=== PATIENT | male | born 1950 | race Caucasian/White ===

== ENCOUNTER 2025-01-20 19:03 | Inpatient (IN) | payer MEDICARE, OTHER ==
[2025-01-20 19:19] LABS: A-aADO2 267; ABG HEMOGLOBIN 13.3; ABG POTASSIUM 4.5 (3.5-5.1); ARTERIAL BLD GAS O2 SATURATION 99.8 % (95-100); ARTERIAL BLOOD GAS BASE EXCESS 3.9 (-2.0-2.0); ARTERIAL BLOOD GAS FIO2 100 %; ARTERIAL BLOOD GAS PO2 356 mmHg (75-100); ARTERIAL BLOOD GAS pH 7.27 (7.35-7.45); CARBOXYHEMOGLOBIN 1.2 % THgb (0.0-6.9); HCO3- 33.1 (22-28); HGB O2 SAT 97.8 g/dF (94-100); Lactic Acid 0.5 (0.4-2.0); Methhemoglobin 0.8 % (1.4-1.5); paO2 pAO1 0.57
[2025-01-20 19:20] LABS: ABG SITE RIGHT RADIAL; ALLEN TEST OK? YES; ARTERIAL BLOOD GAS PCO2 72 mmHg (35-45); BIPAP(E) 8; BIPAP(I) 16
[2025-01-20] MEDS ORDERED: DUONEB 0.5-3 MG/3 ml Neb IH ONE (19:31)
[2025-01-20] MEDS: DUONEB 0.5-3 MG/3 ml Neb IH ONE (19:32)
[2025-01-20 19:51] LABS: Absolute Neutrophil Ct (ANC) 8.26 x10^3/uL (1.78-5.38); BASOPHIL % 0.3 % (0.2-1.2); Basophil (Absolute #) 0.03 x10^3/uL (0.01-0.08); Eosinophil % 0.1 % (0.8-7.0); Eosinophil (Absolute #) 0.01 x10^3/uL (0.04-0.54); Hematocrit 38.2 % (40.1-51.0); Hemoglobin 12.4 g/dL (13.7-17.5); IMMATURE GRAN # 0.03 x10^3u/L (0.001-0.031); IMMATURE GRAN % 0.3 % (0.001-0.429); Lymphocyte (Absolute #) 1.46 x10^3/uL (1.32-3.57); Lymphocytes % 13.9 % (21.8-53.1); Mean Cell Volume 98.7 fL (79.0-92.2); Mean Corpuscular Hgb Concent. 32.5 g/dL (32.3-36.5); Mean Platelet Volume 9.8 fL (9.4-12.4); Monocyte (Absolute #) 0.72 x10^3/uL (0.30-0.82); Monocytes % 6.9 % (5.3-12.2); Neutrophil % 78.5 % (34.0-67.9); Platelet Count 201 x10^3/uL (163-337); Red Blood Count 3.87 x10^6/uL (4.63-6.08); Red Cell Distribution Width 13.2 % (11.6-14.4); White Blood Count 10.5 x10^3/uL (4.23-9.07)
[2025-01-20] MEDS: ROCEPHIN 2 GM/100 ML NACL 2 GM/100 ML IVPB IV ONE (20:04)
[2025-01-20] MEDS ORDERED: ROCEPHIN 2 GM/100 ML NACL 2 GM/100 ML IVPB IV ONE (20:06)
[2025-01-20 20:14] LABS: ANION GAP 11.6 MEQ/L (5-15); BILIRUBIN,TOTAL 0.3 mg/dL (0.2-1.3); Calcium 8.6 mg/dL (8.4-10.2); Creatinine 1 0.6 mg/dL (0.66-1.25); EST GLOMERULAR FILTRATION RATE 100.7 ML/MIN; MAGNESIUM 1.9 mg/dL (1.6-2.3); Potassium 4.5 mmol/L (3.5-5.1); Total Protein 6.3 g/dL (6.3-8.2)
[2025-01-20 20:28] LABS: INFLUENZA B NEGATIVE (NEGATIVE); RESPIRATORY SYNCTIAL VIRUS NEGATIVE (NEGATIVE); SARS-CoV-2 Xpert Express NEGATIVE (NEGATIVE)
[2025-01-20 20:32] LABS: TROPONIN < 0.012 ng/mL (0.000-0.033)
[2025-01-20 20:34] LABS: INFLUENZA A POSITIVE (NEGATIVE)
[2025-01-20] MEDS ORDERED: Zithromax 500 MG/ 250 ML NaCl Premix 500 MG/250 ML IVPB IV ONE (20:45)
[2025-01-20] MEDS: Zithromax 500 MG/ 250 ML NaCl Premix 500 MG/250 ML IVPB IV STA (20:46)
--- NOTE | 2025-01-20 21:17 | ERPHSYRPT ---
- History of Present Illness Source: patient, EMS Exam Limitations: clinical condition Patient Subjective Stated Complaint: C/O SOB. Patient utilizes 02 @ 2L per N/C continuously at home. EMS reports that patient was 82-88% on the 2L. Triage Nursing Assessment: Patient arrived by ambulance. He is alert but drowsy. He is SOB. Lungs are diminished. RT at bedside upon patient arrival to place patient on our BIPAP. No cough noted during assessment. Skin is hot to touch. Hx Tetanus, Diphtheria Vaccination/Date Given: Yes Immunizations Up to Date: Yes - History of Present Illness Time Seen by Provider: 01/20/25 19:14 Physician History: 74-year-old female with history of COPD with chronic respiratory failure on 2 L oxygen, coronary artery disease, hypertension, hyperlipidemia presented in the ER via EMS with flulike symptoms for the last 2 days with progressive worsening cough and difficulty breathing along with subjective feeling of fever and chills . Patient reports coughing up clear to yellow sputum small in amount. Patient was hypoxic on EMS arrival at the scene with saturation in mid to lower 80s on 2 L oxygen, given 2 neb treatments along with Solu-Medrol and placed on CPAP and is brought in the ER. Patient has diminished breath sounds and not moving much air. Given another neb treatment and placed on BiPAP. EKG showed sinus rhythm with no ST elevations. Chest x-ray is negative for any acute cardiopulmonary findings reviewed by me, official report is pending. I did show some COPD, chronic findings. Workup showed white count of 10, chemistries fairly unremarkable, ABGs with pH of 7.27 with some hypercarbia. Negative initial troponins. Patient has positive influenza A and started on Tamiflu. He is also given a dose of Rocephin and Zithromax as I believe patient has a combination of influenza with acute exacerbation of COPD. On reevaluation patient is feeling better with improved work of breathing on BiPAP. Discussed with Dr. Palomino, reviewed history, workup and agreed with admission. Complexity of problems addressed high acuity Complexity of data reviewed analyzed/interpreted: Extensive Risk of complications/morbidity/mortality associated with patient management: High risk ([facility]) Allergies/Adverse Reactions: No Known Drug Allergies Allergy (Verified 01/20/25 19:05) Home Medications: Aspirin 81 gm Chew [Baby Aspirin 81 mg Chew] 81 mg PO DAILY 01/20/25 [History] Budesonide/Formoterol Fumarate [Budesonide-Formoterol 160-4.5] 2 puffs PO BID 01/20/25 [History] Cyanocobalamin (Vitamin B-12) [Vitamin B12] 1,000 mcg PO DAILY 01/20/25 [History] Duloxetine HCl [Cymbalta] 20 mg PO DAILY 01/20/25 [History] Ipratropium/Albuterol Sulfate [Combivent Respimat Inhal [place]] 1 puff PO QID 01/20/25 [History] Metoprolol Succinate 25 mg Xl* [Toprol-Xl 25MG Tablets] 25 mg PO DAILY 01/20/25 [History] Multivitamin 1 tab PO DAILY 01/20/25 [History] Prednisone 10 mg [Deltasone 10 mg] 10 mg PO DAILY 01/20/25 [History] Sacubitril/Valsartan [Entresto 24 mg-26 mg Tablet] 1 tab PO DAILY 01/20/25 [History] Simvastatin 10 mg [Zocor 10MG] 10 mg PO HS 01/20/25 [History] Tamsulosin HCl 0.4 mg [Flomax 0.4 MG] 0.4 mg PO DAILY 01/20/25 [History] Travel Risk - International Travel Have you traveled outside of the country in past 3 weeks: No - Emerging Infectious Disease Are you exhibiting symptoms associated with any current EIDs: Yes Symptoms: Cough: New Onset, Fever, Shortness of Breath - Review of Systems Constitutional: Fever, Fatigue, Weakness Eyes: No Symptoms Ears, Nose, & Throat: Nose Congestion Respiratory: Cough, Dyspnea, Dyspnea on Exertion ([place]), Wheezing Cardiac: No Symptoms Abdominal/Gastrointestinal: No Symptoms Genitourinary Symptoms: No Symptoms Musculoskeletal: Myalgias Neurological: Headache Psychological: No Symptoms Endocrine: No Symptoms Hematologic/Lymphatic: No Symptoms - Past Medical History Pertinent Past Medical History: Yes Cardiac History: High Cholesterol, Hypertension Respiratory History: COPD Psycho-Social History: Anxiety, Depression Male Reproductive Disorders: Prostate Problems Other Medical History: cardiomyopathy, 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 Attempted to get medical history from patient; may be incomplete due to patient's current SOB and drowsiness - Past Surgical History Past Surgical History: Yes Cardiac: Pacemaker - Social History Smoking Status: Current every day smoker How long have you smoked: 50+ years - Social Determinants of Health Will the patient participate in the screening: Declined to provide - Physical Exam General Appearance: moderate distress, alert Eye Exam: PERRL/EOMI, eyes nml inspection Ears, Nose, Throat Exam: hearing grossly normal, nasal congestion Neck Exam: normal inspection, non-tender, supple, full range of motion Respiratory Exam: respiratory distress, diminished breath sounds, accessory muscle use, rhonchi, wheezing Cardiovascular/Chest Exam: normal heart sounds, regular rate/rhythm, bradycardia Abdominal/Gastrointestinal Exam: soft, normal bowel sounds Extremity Exam: non-tender, normal range of motion Neurologic Exam: alert, oriented x 3, cooperative Skin Exam: normal color SpO2 Interpretation: O2 applied SpO2: 98 O2 Delivery: BiPap - Nursing Vital Signs Nursing Vital Signs: Initial Vital Signs Temperature 99.7 F 01/20/25 19:04 Pulse Rate 108 H 01/20/25 19:04 Respiratory Rate 22 01/20/25 19:04 Blood Pressure 151/85 01/20/25 19:04 O2 Sat by Pulse Oximetry 99 01/20/25 19:04 Pain Scale Pain Intensity 0 Ordered Tests: Active Orders 24 hr Category Date Time Status Admit as Inpatient ROUTINE Care 01/21/25 04:47 Active Call Admit Doctor for Orders ON ADMISSION Care 01/21/25 04:47 Active Animal Treatment Investigator STAT Care 01/20/25 19:15 Completed Code Status Order ROUTINE Care 01/21/25 04:47 Active EKG-ER Only STAT Care 01/20/25 19:14 Completed IV Insertion STAT Care 01/20/25 19:14 Completed Telemetry q6h Care 01/21/25 04:47 Active CHEST 1 VIEW (PORTABLE) Stat Exams 01/20/25 19:15 Completed ABG [ARTERIAL BLOOD GASES] Stat Lab 01/20/25 21:55 Completed ARTERIAL BLOOD GASES Stat Lab 01/20/25 19:14 Completed BLOOD CULTURE Stat Lab 01/20/25 19:48 Received CBC W DIFF Stat Lab 01/20/25 19:48 Completed CMP Stat Lab 01/20/25 19:48 Completed Lactic Acid Stat Lab 01/20/25 19:14 Completed MAGNESIUM Stat Lab 01/20/25 19:48 Completed NT PRO BNPII Stat Lab 01/20/25 19:48 Completed TROPONIN Q4H Lab 01/20/25 19:48 Completed Pulse Oximetry CONTINUOUS RT 01/21/25 04:47 Active Respiratory Therapy Consult ONCE RT 01/21/25 04:47 Completed Medication Summary Generic Name Dose Route Start Last Admin Trade Name Phyllis PRN Reason Stop Dose Admin Acetaminophen 325 mg 01/20/25 23:23 Acetaminophen 325 Mg Tablet PO 02/19/25 23:22 Q4H PRN PRN PAIN, FEVER, HEADACHE Albuterol/Ipratropium 3 ml 01/21/25 03:00 01/21/25 11:41 Ipratropium/Albuterol Sulfate 3 Ml Ampul.Neb IH 02/20/25 02:59 3 ml Q4HRT ZAC Administration Aspirin 81 mg 01/21/25 10:00 01/21/25 10:56 Aspirin 81 Mg Tablet.Ec PO 02/20/25 09:59 81 mg DAILY ZAC Administration Methylprednisolone Sodium 0 mg 01/21/25 10:00 01/21/25 10:56 Succinate 40 mg/ Sterile Water IV 02/20/25 09:59 40 mg 1 ml Q12HT ZAC Administration Cyanocobalamin 1,000 mcg 01/21/25 10:00 01/21/25 10:56 Cyanocobalamin 500 Mcg Tablet PO 02/20/25 09:59 1,000 mcg DAILY ZAC Administration Enoxaparin Sodium 40 mg 01/21/25 10:00 01/21/25 10:57 Enoxaparin Sodium 40 Mg/0.4 Ml Syringe SQ 02/20/25 09:59 40 mg DAILY ZAC Administration Ceftriaxone Sodium 1 gm in 100 mls @ 200 mls/hr 01/21/25 22:00 Rocephin 1 Gm / 100 Ml Nacl IV 02/20/25 21:59 HS ZAC Azithromycin 500 mg in 250 mls @ 250 mls/hr 01/21/25 22:00 Zithromax 500 Mg/ 250 Ml Nacl Premix IV 02/20/25 21:59 HS ZAC Insulin Human Lispro 0 unit 01/20/25 23:23 Insulin Lispro 1 Unit SQ 02/19/25 23:22 UD PRN HYPERGLYCEMIA Metoprolol Succinate 25 mg 01/21/25 10:00 01/21/25 10:58 Metoprolol Succinate 25 Mg Xl Tab PO 02/20/25 09:59 25 mg DAILY ZAC Administration Miscellaneous Information 1 each 01/21/25 10:00 Medication Intervention 1 Each Each 02/20/25 09:59 .RN TO CHECK ZAC Multivitamins Therapeutic 1 tab 01/21/25 10:00 01/21/25 10:56 Multivitamins,Therapeutic 1 Tab Tab PO 02/20/25 09:59 1 tab DAILY ZAC Administration Non-Formulary Medication 2 puffs 01/21/25 10:00 Budesonide/Formoterol Fumarate [Budesonide-Formoterol 160-4.5] PO 02/20/25 09:59 BID ZAC Ondansetron HCl 4 mg 01/20/25 23:23 Ondansetron Hcl 4 Mg/2 Ml Vial IV 02/19/25 23:22 Q6H PRN PRN NAUSEA/VOMITING Oseltamivir Phosphate 75 mg 01/21/25 10:00 01/21/25 10:56 Oseltamivir 75 Mg Cap PO 01/26/25 09:59 75 mg BID ZAC Administration Pantoprazole Sodium 40 mg 01/21/25 10:00 01/21/25 10:56 Protonix (Pantoprazole) 40 Mg Tablet PO 02/20/25 09:59 40 mg DAILY ZAC Administration Sacubitril/Valsartan 0.5 tablet 01/21/25 10:00 01/21/25 10:58 Sacubitril/Valsartan 1 Tablet Tablet PO 02/20/25 09:59 0.5 tablet DAILY ZAC Administration Simvastatin 10 mg 01/21/25 22:00 Simvastatin 10 Mg Tablet PO 02/20/25 21:59 HS ZAC Tamsulosin HCl 0.4 mg 01/21/25 10:00 01/21/25 10:56 Tamsulosin Hcl 0.4 Mg Cap PO 02/20/25 09:59 0.4 mg DAILY ZAC Administration Discontinued Medications Generic Name Dose Route Start Last Admin Trade Name Freq PRN Reason Stop Dose Admin Acetaminophen 1,000 mg 01/20/25 21:31 01/20/25 21:37 Acetaminophen 500 Mg Tablet PO 01/20/25 21:32 1,000 mg STAT ONE Administration Acetaminophen Confirm 01/20/25 21:36 Acetaminophen 500 Mg Tablet Administered 01/20/25 21:37 Dose 1,000 mg .ROUTE .STK-MED ONE Albuterol/Ipratropium 3 ml 01/20/25 19:14 01/20/25 19:32 Ipratropium/Albuterol Sulfate 3 Ml Ampul.Neb IH 01/20/25 19:15 3 ml STAT ONE Administration Albuterol/Ipratropium Confirm 01/20/25 19:31 Ipratropium/Albuterol Sulfate 3 Ml Ampul.Neb Administered 01/20/25 19:32 Dose 3 ml IH .STK-MED ONE Aspirin 81 mg 01/21/25 10:00 Aspirin 81 Mg Tab.Chew PO 02/20/25 09:59 DAILY ZAC Azithromycin 500 mg in 250 mls @ 250 mls/hr 01/20/25 20:00 01/20/25 21:49 Zithromax 500 Mg/ 250 Ml Nacl Premix IV 01/20/25 20:59 Infused STAT STA Infusion Ceftriaxone Sodium 2 gm in 100 mls @ 200 mls/hr 01/20/25 20:00 01/20/25 20:45 Rocephin 2 Gm/100 Ml Nacl IV 01/20/25 20:29 Infused STAT ONE Infusion Ceftriaxone Sodium Confirm 01/20/25 20:06 Rocephin 2 Gm/100 Ml Nacl Administered 01/20/25 20:07 Dose 2 gm in 100 mls @ ud IV .STK-MED ONE Azithromycin Confirm 01/20/25 20:45 Zithromax 500 Mg/ 250 Ml Nacl Premix Administered 01/20/25 20:46 Dose 500 mg in 250 mls @ ud IV .STK-MED ONE Sodium Chloride 500 mls @ 500 mls/hr 01/20/25 22:06 01/20/25 22:54 Sodium Chloride 0.9% 500 Ml IV 01/20/25 23:05 Infused .Q1H ONE Infusion Sodium Chloride Confirm 01/20/25 22:04 Sodium Chloride 0.9% 500 Ml Administered 01/20/25 22:05 Dose 500 mls @ ud IV .STK-MED ONE Oseltamivir Phosphate 75 mg 01/20/25 20:36 01/20/25 21:37 Oseltamivir 75 Mg Cap PO 01/20/25 20:37 75 mg STAT ONE Administration Oseltamivir Phosphate Confirm 01/20/25 21:36 Oseltamivir 75 Mg Cap Administered 01/20/25 21:37 Dose 75 mg PO .STK-MED ONE Lab/Rad Data: Laboratory Result Diagrams 01/20/25 19:48 01/20/25 19:48 Laboratory Results 01/20/25 01/20/25 01/20/25 Range/Units 21:55 19:48 19:48 WBC (4.23-9.07) x10^3/uL RBC (4.63-6.08) x10^6/uL Hgb (13.7-17.5) g/dL Hct (40.1-51.0) % MCV (79.0-92.2) fL MCH (25.7-32.2) pg MCHC (32.3-36.5) g/dL RDW (11.6-14.4) % Plt Count (163-337) x10^3/uL MPV (9.4-12.4) fL Gran % (34.0-67.9) % Immature Gran % (Auto) (0.001-0.429) % Nucleat RBC Rel Count (0.00-0.2) % Eos # (Auto) (0.04-0.54) x10^3/uL Immature Gran # (Auto) (0.001-0.031) x10^3u/L Absolute Lymphs (auto) (1.32-3.57) x10^3/uL Absolute Monos (auto) (0.30-0.82) x10^3/uL Absolute Nucleated RBC (0.00-0.012) x10^3u/L Lymphocytes % (21.8-53.1) % Monocytes % (5.3-12.2) % Eosinophils % (0.8-7.0) % Basophils % (0.2-1.2) % Absolute Granulocytes (1.78-5.38) x10^3/uL Basophils # (0.01-0.08) x10^3/uL Puncture Site LEFT RADIAL pCO2 67 H* (35-45) mmHg pO2 187 H* (75-100) mmHg Base Excess 1.4 (-2.0-2.0) O2 Saturation 97.8 (94-100) g/dF ABG pH 7.26 L (7.35-7.45) ABG HCO3 30.1 H* (22-28) ABG O2 Sat (Measured) 98.8 (95-100) % Josh Test YES A-a Gradient 86 a/A Ratio 0.68 Hemoglobin 12.8 Carboxyhemoglobin 0.5 (0.0-6.9) % THgb Methemoglobin 0.6 L (1.4-1.5) % Potassium 4.2 (3.5-5.1) Temperature 37.0 C POC O2 Flow Rate 50 % Inspiratory BiPAP 16 Expiratory BiPAP 8 Sodium (135-145) mmol/L Chloride (98-107) mmol/L Carbon Dioxide (22-30) mmol/L Anion Gap (5-15) MEQ/L BUN (9-20) mg/dL Creatinine (0.66-1.25) mg/dL Estimated GFR ML/MIN Glucose (74-106) mg/dL Lactic Acid (0.4-2.0) Calcium (8.4-10.2) mg/dL Magnesium (1.6-2.3) mg/dL Total Bilirubin (0.2-1.3) mg/dL AST (17-59) U/L ALT (0-50) U/L Alkaline Phosphatase (38-126) U/L Troponin I < 0.012 (0.000-0.033) ng/mL NT-Pro-B Natriuret Pep 72.0 (<300) pg/mL Serum Total Protein (6.3-8.2) g/dL Albumin (3.5-5.0) g/dL Influenza Type A Ag POSITIVE A (NEGATIVE) Influenza Type B Ag NEGATIVE (NEGATIVE) RSV (PCR) NEGATIVE (NEGATIVE) SARS-CoV-2 (PCR) NEGATIVE (NEGATIVE) 01/20/25 01/20/25 01/20/25 Range/Units 19:48 19:48 19:14 WBC 10.5 H (4.23-9.07) x10^3/uL RBC 3.87 L (4.63-6.08) x10^6/uL Hgb 12.4 L (13.7-17.5) g/dL Hct 38.2 L (40.1-51.0) % MCV 98.7 H (79.0-92.2) fL MCH 32.0 (25.7-32.2) pg MCHC 32.5 (32.3-36.5) g/dL RDW 13.2 (11.6-14.4) % Plt Count 201 (163-337) x10^3/uL MPV 9.8 (9.4-12.4) fL Gran % 78.5 H (34.0-67.9) % Immature Gran % (Auto) 0.3 (0.001-0.429) % Nucleat RBC Rel Count 0.0 (0.00-0.2) % Eos # (Auto) 0.01 L (0.04-0.54) x10^3/uL Immature Gran # (Auto) 0.03 (0.001-0.031) x10^3u/L Absolute Lymphs (auto) 1.46 (1.32-3.57) x10^3/uL Absolute Monos (auto) 0.72 (0.30-0.82) x10^3/uL Absolute Nucleated RBC 0.00 (0.00-0.012) x10^3u/L Lymphocytes % 13.9 L (21.8-53.1) % Monocytes % 6.9 (5.3-12.2) % Eosinophils % 0.1 L (0.8-7.0) % Basophils % 0.3 (0.2-1.2) % Absolute Granulocytes 8.26 H (1.78-5.38) x10^3/uL Basophils # 0.03 (0.01-0.08) x10^3/uL Puncture Site RIGHT RADIAL pCO2 72 H* (35-45) mmHg pO2 356 H* (75-100) mmHg Base Excess 3.9 H (-2.0-2.0) O2 Saturation 97.8 (94-100) g/dF ABG pH 7.27 L (7.35-7.45) ABG HCO3 33.1 H* (22-28) ABG O2 Sat (Measured) 99.8 (95-100) % Josh Test YES A-a Gradient 267 a/A Ratio 0.57 Hemoglobin 13.3 Carboxyhemoglobin 1.2 (0.0-6.9) % THgb Methemoglobin 0.8 L (1.4-1.5) % Potassium 4.5 4.5 (3.5-5.1) Temperature 37.0 C POC O2 Flow Rate 100 % Inspiratory BiPAP 16 Expiratory BiPAP 8 Sodium 135 (135-145) mmol/L Chloride 97 L (98-107) mmol/L Carbon Dioxide 30 (22-30) mmol/L Anion Gap 11.6 (5-15) MEQ/L BUN 15 (9-20) mg/dL Creatinine 0.60 L (0.66-1.25) mg/dL Estimated GFR 100.7 ML/MIN Glucose 127 H (74-106) mg/dL Lactic Acid 0.5 (0.4-2.0) Calcium 8.6 (8.4-10.2) mg/dL Magnesium 1.9 (1.6-2.3) mg/dL Total Bilirubin 0.30 (0.2-1.3) mg/dL AST 30 (17-59) U/L ALT 23 (0-50) U/L Alkaline Phosphatase 56 (38-126) U/L Troponin I (0.000-0.033) ng/mL NT-Pro-B Natriuret Pep (<300) pg/mL Serum Total Protein 6.3 (6.3-8.2) g/dL Albumin 4.0 (3.5-5.0) g/dL Influenza Type A Ag (NEGATIVE) Influenza Type B Ag (NEGATIVE) RSV (PCR) (NEGATIVE) SARS-CoV-2 (PCR) (NEGATIVE) - Progress Progress: improved, re-examined Air Movement: fair Blood Culture(s) Obtained: Yes Antibiotics given: Yes Discussed with Dr.: Other (Dr. Palomino hospitalist) Will see patient in: hospital (full admit) Counseled pt/family regarding: lab results, diagnosis, rad results, smoking cessation - Progress Progress Note: 01/20/25 21:17 74-year-old female with history of COPD with chronic respiratory failure on 2 L oxygen, coronary artery disease, hypertension, hyperlipidemia presented in the ER via EMS with flulike symptoms for the last 2 days with progressive worsening cough and difficulty breathing along with subjective feeling of fever and chills. Patient reports coughing up clear to yellow sputum small in amount. Patient was hypoxic on EMS arrival at the scene with saturation in mid to lower 80s on 2 L oxygen, given 2 neb treatments along with Solu-Medrol and placed on CPAP and is brought in the ER. Patient has diminished breath sounds and not moving much air. Given another neb treatment and placed on BiPAP. EKG showed sinus rhythm with no ST elevations. Chest x-ray is negative for any acute cardiopulmonary findings reviewed by me, official report is pending. I did show some COPD, chronic findings. Workup showed white count of 10, chemistries fairly unremarkable, ABGs with pH of 7.27 with some hypercarbia. Negative initial troponins. Patient has positive influenza A and started on Tamiflu. He is also given a dose of Rocephin and Zithromax as I believe patient has a combination of influenza with acute exacerbation of COPD. On reevaluation patient is feeling better with improved work of breathing on BiPAP. Discussed with Dr. Palomino, reviewed history, workup and agreed with admission. Complexity of problems addressed high acuity Complexity of data reviewed analyzed/interpreted: Extensive Risk of complications/morbidity/mortality associated with patient management: High risk ([facility]) 01/21/25 13:01 I received a phone call from our in-house radiologist Dr. Ruiz who over read and gave the final chest x-ray report on this patient. Dr. Main had said that he did not appreciate any acute cardiopulmonary process on his read. However Dr. Ruiz states that he sees a right middle lobe infiltrate. I reviewed the chart and Dr. Main did place the patient on intravenous Rocephin and intravenous Zithromax. The patient was placed into the hospital here at [facility]. We will contact the floor and informed them of the radiologist read. (SHEELA SOTO) Medical Desision Making - Independent Historian Additional History obtained from: Wound Care Technician/EMT - Discussion of managment Care discussed with:: hospitalist (Dr. Palomino hospitalist) Reviewed:: Test results Agreed on:: Treatment plan, decision to admit Will see patient: in ED - Diagnostic Testing Diagnostic test were ordered, analyzed, and reviewed by me: Yes Radiological Interpretation: Interpreted by me, Reviewed by me - Risk of complications The pt has a mod risk of morbidity or mortality based on: Need for prescription drug management The pt has a high risk of morbidity or mortality based on: Drug therapy requirin g intensive monitoring for toxicity, Decision regarding hospitilization or escalation of hosp level of care - Departure Departure Disposition: In-patient Admission Critical Care Time: Yes Critical Care Time(excluding separately billable procedures): Critical 30-74 mins - Departure Clinical Impression: COPD exacerbation, Influenza A Respiratory failure Qualifiers: Chronicity: acute on chronic Respiratory failure complication: hypoxia and hypercapnia Qualified Code(s): J96.21 - Acute and chronic respiratory failure with hypoxia Condition: Fair
[2025-01-20] MEDS ORDERED: TYLENOL EXTRA STRENGTH 500 MG ONE (21:36)
[2025-01-20] MEDS ORDERED: Tamiflu 75MG Capsule PO ONE (21:36)
[2025-01-20] MEDS: TYLENOL EXTRA STRENGTH 500 MG PO ONE (21:37)
[2025-01-20] MEDS: Tamiflu 75MG Capsule PO ONE (21:37)
[2025-01-20 21:55] LABS: A-aADO2 86; ABG HEMOGLOBIN 12.8; ABG POTASSIUM 4.2 (3.5-5.1); ARTERIAL BLD GAS O2 SATURATION 98.8 % (95-100); ARTERIAL BLOOD GAS BASE EXCESS 1.4 (-2.0-2.0); ARTERIAL BLOOD GAS FIO2 50 %; ARTERIAL BLOOD GAS PO2 187 mmHg (75-100); ARTERIAL BLOOD GAS pH 7.26 (7.35-7.45); CARBOXYHEMOGLOBIN 0.5 % THgb (0.0-6.9); HCO3- 30.1 (22-28); HGB O2 SAT 97.8 g/dF (94-100); Methhemoglobin 0.6 % (1.4-1.5); paO2 pAO1 0.68
[2025-01-20 21:56] LABS: ABG SITE LEFT RADIAL; ALLEN TEST OK? YES; ARTERIAL BLOOD GAS PCO2 67 mmHg (35-45); BIPAP(E) 8; BIPAP(I) 16
[2025-01-20] MEDS ORDERED: Sodium Chloride 0.9% 500 ML 500 ML IV ONE (22:04)
[2025-01-20] MEDS: Sodium Chloride 0.9% 500 ML 500 ML IV ONE (22:08)
--- NOTE | 2025-01-20 22:54 | PCM.HP ---
History of Present Illness - Chief Complaint Chief Complaint: SOB Date: 01/20/25 History of Present Illness: Mr. VASQUEZ is a 74 year old male with a past medical history significant for hypertension, COPD and hyperlipidemia who presents to the hospital with complaints of fever, chills and shortness of breath. He was hypoxic upon arrival, then given supplemental oxygen and duonebs. He tested positive for influenza A and has been recommended for admission. He is resting in bed, awake/alert. No chest pain or palpitations. No nausea, vomiting or diarrhea. No dysuria, hematuria or urgency. - Review of Systems Constitutional: Fever, Chills, Fatigue Eyes: No Vision Changes Ears, Nose, & Throat: No Sinus Drainage Respiratory: Cough, Short Of Breath Cardiac: No Chest Pain, No Palpitations Abdominal/Gastrointestinal: No Abdominal Pain, No Nausea, No Vomiting, No Diarrhea Genitourinary Symptoms: No Dysuria, No Frequency, No Hematuria Musculoskeletal: No Arthralgias Skin: No Cellulitis Psychological: No Suicidal Ideations Endocrine: No Excessive Sweating Medications & Allergies Home Medications: Home Medication List Aspirin 81 gm Chew [Baby Aspirin 81 mg Chew] 81 mg PO DAILY 01/20/25 [History Confirmed 01/20/25] Budesonide/Formoterol Fumarate [Budesonide-Formoterol 160-4.5] 2 puffs PO BID 01/20/25 [History Confirmed 01/20/25] Cyanocobalamin (Vitamin B-12) [Vitamin B12] 1,000 mcg PO DAILY 01/20/25 [History Confirmed 01/20/25] Duloxetine HCl [Cymbalta] 20 mg PO DAILY 01/20/25 [History Confirmed 01/20/25] Ipratropium/Albuterol Sulfate [Combivent Respimat Inhal [place]] 1 puff PO QID 01/20/25 [History Confirmed 01/20/25] Metoprolol Succinate 25 mg Xl* [Toprol-Xl 25MG Tablets] 25 mg PO DAILY 01/20/25 [History Confirmed 01/20/25] Multivitamin 1 tab PO DAILY 01/20/25 [History Confirmed 01/20/25] Prednisone 10 mg [Deltasone 10 mg] 10 mg PO DAILY 01/20/25 [History Confirmed 01/20/25] Sacubitril/Valsartan [Entresto 24 mg-26 mg Tablet] 1 tab PO DAILY 01/20/25 [History Confirmed 01/20/25] Simvastatin 10 mg [Zocor 10MG] 10 mg PO HS 01/20/25 [History Confirmed 01/20/25] Tamsulosin HCl 0.4 mg [Flomax 0.4 MG] 0.4 mg PO DAILY 01/20/25 [History Confirmed 01/20/25] Allergies/Adverse Reactions: Allergies Allergy/AdvReac Type Severity Reaction Status Date / Time No Known Drug Allergies Allergy Verified 01/20/25 19:05 - Past Medical History Past Medical History: Yes Cardiac History: High Cholesterol, Hypertension Respiratory History: COPD Pyscho-Social History: Anxiety, Depression Male Reproductive Disorders: Prostate Problems Comment: cardiomyopathy, 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 Attempted to get medical history from patient; may be incomplete due to patient's current SOB and drowsiness - Past Surgical History Past Surgical History: Yes Cardiac History: Pacemaker - Social History Smoking Status: Current every day smoker How long have you smoked: 50+ years - Social Determinants of Health Will the patient participate in the screening: Declined to provide - Physical Exam Vital Signs: Vital Signs - 24 hr Temp Pulse Resp BP Pulse Ox 01/20/25 22:04 100 H 21 80/53 99 01/20/25 22:00 99 H 18 85/57 99 01/20/25 21:30 104/60 01/20/25 21:19 98 01/20/25 21:18 102 H 26 H 98 01/20/25 21:01 104 H 26 H 96/57 99 01/20/25 20:30 99.9 F 100 H 25 H 105/71 98 01/20/25 20:00 105 H 21 111/56 98 01/20/25 19:33 108 H 21 114/64 97 01/20/25 19:32 110 H 21 99 01/20/25 19:30 112 H 22 89/58 99 01/20/25 19:15 115 H 16 115/70 97 01/20/25 19:04 99.7 F 108 H 22 151/85 99 General Appearance: no apparent distress Neurologic Exam: alert Ears, Nose, Throat Exam: dry mucous membranes Neck Exam: supple Respiratory Exam: No respiratory distress Cardiovascular Exam: regular rate/rhythm Gastrointestinal/Abdomen Exam: soft Extremity Exam: No pedal edema, No swelling Skin Exam: normal color, No rash Results - Labs Lab/Micro Results: Lab Results-Last 24 Hours 01/20/25 01/20/25 01/20/25 Range/Units 19:14 19:48 19:48 WBC 10.5 H (4.23-9.07) x10^3/uL RBC 3.87 L (4.63-6.08) x10^6/uL Hgb 12.4 L (13.7-17.5) g/dL Hct 38.2 L (40.1-51.0) % MCV 98.7 H (79.0-92.2) fL MCH 32.0 (25.7-32.2) pg MCHC 32.5 (32.3-36.5) g/dL RDW 13.2 (11.6-14.4) % Plt Count 201 (163-337) x10^3/uL MPV 9.8 (9.4-12.4) fL Gran % 78.5 H (34.0-67.9) % Immature Gran % (Auto) 0.3 (0.001-0.429) % Nucleat RBC Rel Count 0.0 (0.00-0.2) % Eos # (Auto) 0.01 L (0.04-0.54) x10^3/uL Immature Gran # (Auto) 0.03 (0.001-0.031) x10^3u/L Absolute Lymphs (auto) 1.46 (1.32-3.57) x10^3/uL Absolute Monos (auto) 0.72 (0.30-0.82) x10^3/uL Absolute Nucleated RBC 0.00 (0.00-0.012) x10^3u/L Lymphocytes % 13.9 L (21.8-53.1) % Monocytes % 6.9 (5.3-12.2) % Eosinophils % 0.1 L (0.8-7.0) % Basophils % 0.3 (0.2-1.2) % Absolute Granulocytes 8.26 H (1.78-5.38) x10^3/uL Basophils # 0.03 (0.01-0.08) x10^3/uL Puncture Site RIGHT RADIAL pCO2 72 H* (35-45) mmHg pO2 356 H* (75-100) mmHg Base Excess 3.9 H (-2.0-2.0) O2 Saturation 97.8 (94-100) g/dF ABG pH 7.27 L (7.35-7.45) ABG HCO3 33.1 H* (22-28) ABG O2 Sat (Measured) 99.8 (95-100) % Josh Test YES A-a Gradient 267 a/A Ratio 0.57 Hemoglobin 13.3 Carboxyhemoglobin 1.2 (0.0-6.9) % THgb Methemoglobin 0.8 L (1.4-1.5) % Potassium 4.5 4.5 (3.5-5.1) Temperature 37.0 C POC O2 Flow Rate 100 % Inspiratory BiPAP 16 Expiratory BiPAP 8 Sodium 135 (135-145) mmol/L Chloride 97 L (98-107) mmol/L Carbon Dioxide 30 (22-30) mmol/L Anion Gap 11.6 (5-15) MEQ/L BUN 15 (9-20) mg/dL Creatinine 0.60 L (0.66-1.25) mg/dL Estimated GFR 100.7 ML/MIN Glucose 127 H (74-106) mg/dL Lactic Acid 0.5 (0.4-2.0) Calcium 8.6 (8.4-10.2) mg/dL Magnesium 1.9 (1.6-2.3) mg/dL Total Bilirubin 0.30 (0.2-1.3) mg/dL AST 30 (17-59) U/L ALT 23 (0-50) U/L Alkaline Phosphatase 56 (38-126) U/L Troponin I (0.000-0.033) ng/mL NT-Pro-B Natriuret Pep (<300) pg/mL Serum Total Protein 6.3 (6.3-8.2) g/dL Albumin 4.0 (3.5-5.0) g/dL Influenza Type A Ag (NEGATIVE) Influenza Type B Ag (NEGATIVE) RSV (PCR) (NEGATIVE) SARS-CoV-2 (PCR) (NEGATIVE) 01/20/25 01/20/25 01/20/25 Range/Units 19:48 19:48 21:55 WBC (4.23-9.07) x10^3/uL RBC (4.63-6.08) x10^6/uL Hgb (13.7-17.5) g/dL Hct (40.1-51.0) % MCV (79.0-92.2) fL MCH (25.7-32.2) pg MCHC (32.3-36.5) g/dL RDW (11.6-14.4) % Plt Count (163-337) x10^3/uL MPV (9.4-12.4) fL Gran % (34.0-67.9) % Immature Gran % (Auto) (0.001-0.429) % Nucleat RBC Rel Count (0.00-0.2) % Eos # (Auto) (0.04-0.54) x10^3/uL Immature Gran # (Auto) (0.001-0.031) x10^3u/L Absolute Lymphs (auto) (1.32-3.57) x10^3/uL Absolute Monos (auto) (0.30-0.82) x10^3/uL Absolute Nucleated RBC (0.00-0.012) x10^3u/L Lymphocytes % (21.8-53.1) % Monocytes % (5.3-12.2) % Eosinophils % (0.8-7.0) % Basophils % (0.2-1.2) % Absolute Granulocytes (1.78-5.38) x10^3/uL Basophils # (0.01-0.08) x10^3/uL Puncture Site LEFT RADIAL pCO2 67 H* (35-45) mmHg pO2 187 H* (75-100) mmHg Base Excess 1.4 (-2.0-2.0) O2 Saturation 97.8 (94-100) g/dF ABG pH 7.26 L (7.35-7.45) ABG HCO3 30.1 H* (22-28) ABG O2 Sat (Measured) 98.8 (95-100) % Josh Test YES A-a Gradient 86 a/A Ratio 0.68 Hemoglobin 12.8 Carboxyhemoglobin 0.5 (0.0-6.9) % THgb Methemoglobin 0.6 L (1.4-1.5) % Potassium 4.2 (3.5-5.1) Temperature 37.0 C POC O2 Flow Rate 50 % Inspiratory BiPAP 16 Expiratory BiPAP 8 Sodium (135-145) mmol/L Chloride (98-107) mmol/L Carbon Dioxide (22-30) mmol/L Anion Gap (5-15) MEQ/L BUN (9-20) mg/dL Creatinine (0.66-1.25) mg/dL Estimated GFR ML/MIN Glucose (74-106) mg/dL Lactic Acid (0.4-2.0) Calcium (8.4-10.2) mg/dL Magnesium (1.6-2.3) mg/dL Total Bilirubin (0.2-1.3) mg/dL AST (17-59) U/L ALT (0-50) U/L Alkaline Phosphatase (38-126) U/L Troponin I < 0.012 (0.000-0.033) ng/mL NT-Pro-B Natriuret Pep 72.0 (<300) pg/mL Serum Total Protein (6.3-8.2) g/dL Albumin (3.5-5.0) g/dL Influenza Type A Ag POSITIVE A (NEGATIVE) Influenza Type B Ag NEGATIVE (NEGATIVE) RSV (PCR) NEGATIVE (NEGATIVE) SARS-CoV-2 (PCR) NEGATIVE (NEGATIVE) - Radiology Impressions Radiology Exams & Impressions: Radiology Procedures Category Date Time Status CHEST 1 VIEW (PORTABLE) Stat Exams 01/20/25 19:15 Taken - Other Procedures and Tests Respiratory Therapy 01/20/25 19:14 BiPap/CPAP STAT 01/20/25 19:37 Respiratory Therapy Assessment DAILY Assessment/Plan (1) Acute respiratory failure with hypoxemia Current Visit: Yes Status: Acute Assessment & Plan: Secondary to influenza with underlying COPD 1. Admit to hospital 2. Duonebs, supplemental oxygen 3. Steroids 4. DVT/GI prophylaxis 5. Monitor oxygen sats Code(s): J96.01 - ACUTE RESPIRATORY FAILURE WITH HYPOXIA (2) COPD exacerbation Current Visit: Yes Status: Acute Assessment & Plan: Worsened by influenza 1. Duonebs, steroids 2. Wean oxygen 3. ABG prn Code(s): J44.1 - CHRONIC OBSTRUCTIVE PULMONARY DISEASE W (ACUTE) EXACERBATION (3) Influenza A Current Visit: Yes Status: Acute Assessment & Plan: Influenza with fever/chills 1. Tamiflu 2. Trend WBC 3. Empiric antibiotics Code(s): J10.1 - FLU DUE TO OTH IDENT INFLUENZA VIRUS W OTH RESP MANIFEST (4) Respiratory acidosis Current Visit: Yes Status: Acute Assessment & Plan: ABG with pCO2 67 1. Monitor ABG 2. Defer bicarb Code(s): E87.29 - OTHER ACIDOSIS (5) Essential (primary) hypertension Current Visit: Yes Status: Acute Assessment & Plan: Blood pressure under good control 1. Continue bp meds 2. Low sodium diet 3. Monitor blood pressure readings Code(s): I10 - ESSENTIAL (PRIMARY) HYPERTENSION Telemedicine Encounter - Telemedicine Encounter Telemedicine Encounter: "The entirety of this encounter was performed via Telemedicine" This visit was performed using real-time audio and video connection between my location and thepatients locationwith the assistance of a surrogateat the patients location. Written or verbal consent was obtained from the patient/guardian to perform this visit usingthe [facility] technology. Any patient questions regarding the telemedicine interaction were answered.
[2025-01-20] MEDS ORDERED: Zofran 4 MG/2 ML VIAL IV PRN (23:23)
[2025-01-20] MEDS ORDERED: TYLENOL 325 MG PO PRN (23:23)
[2025-01-20] MEDS ORDERED: HUMALOG SQ PRN (23:23)
[2025-01-20] MEDS: DUONEB 0.5-3 MG/3 ml Neb IH SCH (23:30)
[2025-01-21] MEDS ORDERED: DUONEB 0.5-3 MG/3 ml Neb IH SCH (01:00)
[2025-01-21 03:48] LABS: A-aADO2 55; ABG HEMOGLOBIN 12.2; ABG POTASSIUM 4.4 (3.5-5.1); ABG SITE LEFT RADIAL; ALLEN TEST OK? YES; ARTERIAL BLD GAS O2 SATURATION 99.6 % (95-100); ARTERIAL BLOOD GAS FIO2 40 %; ARTERIAL BLOOD GAS PCO2 56 mmHg (35-45); ARTERIAL BLOOD GAS PO2 160 mmHg (75-100); ARTERIAL BLOOD GAS pH 7.35 (7.35-7.45); CARBOXYHEMOGLOBIN 3.4 % THgb (0.0-6.9); HCO3- 30.9 (22-28); HGB O2 SAT 95.3 g/dF (94-100); Methhemoglobin 0.9 % (1.4-1.5); paO2 pAO1 0.74
[2025-01-21 04:01] LABS: ALBUMIN 3.8 g/dL (3.5-5.0); ANION GAP 9.6 MEQ/L (5-15); BILIRUBIN,TOTAL 0.2 mg/dL (0.2-1.3); Calcium 8.2 mg/dL (8.4-10.2); Creatinine 1 0.5 mg/dL (0.66-1.25); EST GLOMERULAR FILTRATION RATE 106.4 ML/MIN; Potassium 4.5 mmol/L (3.5-5.1)
[2025-01-21 04:41] LABS: Absolute Neutrophil Ct (ANC) 6.45 x10^3/uL (1.78-5.38); BASOPHIL % 0.1 % (0.2-1.2); Basophil (Absolute #) 0.01 x10^3/uL (0.01-0.08); Eosinophil % 0.1 % (0.8-7.0); Eosinophil (Absolute #) 0.01 x10^3/uL (0.04-0.54); Hematocrit 35.5 % (40.1-51.0); Hemoglobin 11.5 g/dL (13.7-17.5); IMMATURE GRAN # 0.02 x10^3u/L (0.001-0.031); IMMATURE GRAN % 0.3 % (0.001-0.429); Lymphocyte (Absolute #) 0.45 x10^3/uL (1.32-3.57); Lymphocytes % 6.4 % (21.8-53.1); Mean Cell Volume 99.2 fL (79.0-92.2); Mean Corpuscular Hemoglobin 32.1 pg (25.7-32.2); Mean Corpuscular Hgb Concent. 32.4 g/dL (32.3-36.5); Mean Platelet Volume 10.3 fL (9.4-12.4); Monocyte (Absolute #) 0.07 x10^3/uL (0.30-0.82); Neutrophil % 92.1 % (34.0-67.9); Platelet Count 212 x10^3/uL (163-337); Red Blood Count 3.58 x10^6/uL (4.63-6.08); Red Cell Distribution Width 13.2 % (11.6-14.4)
[2025-01-21 05:08] LABS: Slide Review 1 YES
--- NOTE | 2025-01-21 05:27 | PCM.NOTE ---
Date and Time: 01/21/25523 Subjective Assessment: Mr. VASQUEZ is a 74 year old male with a past medical history significant for hypertension, COPD and hyperlipidemia who presents to the hospital with complaints of fever, chills and shortness of breath. He was hypoxic upon arrival, then given supplemental oxygen and duonebs. CXR demonstrates COPD and a few calcified granulomas. New right middle lobe infiltrate/atelectasis with tiny effusion. Heart not enlarged again with right pacemaker. Bony thorax intact again with osteopenia and degenerative changes. He tested positive for influenza A and has been recommended for admission. Patient initially on BIPAP and now on 5L oxymask. Endorses continued dyspnea, productive cough with purulent sputum, poor appetite, and generalized weakness. Lung sounds diminished on auscultation. Plan for continued supportive therapy with supplemental oxygen, Tamiflu, steroids, and antibiotics. - Review of Systems Constitutional: Weakness Eyes: No Symptoms Ears, Nose, & Throat: No Symptoms Respiratory: Cough, Short Of Breath Cardiac: No Symptoms Abdominal/Gastrointestinal: Appetite Changes (poor appetite ) Genitourinary Symptoms: No Symptoms Musculoskeletal: No Symptoms Skin: No Symptoms Neurological: No Symptoms Psychological: No Symptoms Endocrine: No Symptoms Hematologic/Lymphatic: No Symptoms Immunological/Allergic: No Symptoms Objective Exam General Appearance: no apparent distress Neurologic Exam: alert, oriented x 3, cooperative Skin Exam: normal color Eye Exam: PERRL Ears, Nose, Throat Exam: normal ENT inspection Neck Exam: normal inspection Respiratory Exam: normal breath sounds, lungs clear Cardiovascular Exam: regular rate/rhythm, normal heart sounds Gastrointestinal/Abdomen Exam: soft, normal bowel sounds Extremity Exam: normal inspection Back Exam: normal inspection Male Genitalia Exam: deferred Rectal Exam: deferred Objective Data Vital Signs: Vital Signs - 24 hr Temp Pulse Resp BP BP Pulse Ox 01/21/25 04:47 91 L 01/21/25 04:00 97.1 F 94 H 18 112/55 96 01/21/25 03:25 94 H 25 H 96 01/20/25 23:30 106 H 22 98 01/20/25 23:29 98.2 F 94 H 19 94/54 97 01/20/25 23:21 98.2 F 94 H 19 94/54 97 01/20/25 22:45 98.5 F 93 H 21 93/65 98 01/20/25 22:30 90 22 90/51 99 01/20/25 22:28 94 H 20 90/51 99 01/20/25 22:04 100 H 21 80/53 99 01/20/25 22:00 99 H 18 85/57 99 01/20/25 21:30 104/60 01/20/25 21:19 98 01/20/25 21:18 102 H 26 H 98 01/20/25 21:01 104 H 26 H 96/57 99 01/20/25 20:30 99.9 F 100 H 25 H 105/71 98 01/20/25 20:00 105 H 21 111/56 98 01/20/25 19:33 108 H 21 114/64 97 01/20/25 19:32 110 H 21 99 01/20/25 19:30 112 H 22 89/58 99 01/20/25 19:15 115 H 16 115/70 97 01/20/25 19:04 99.7 F 108 H 22 151/85 99 Pain Assessment - Last Documented Pain Intensity 3 Intake and Output: Intake & Output 01/18/25 01/19/25 01/20/25 01/21/25 11:59 11:59 11:59 11:59 Weight 60.9 kg Lab Results: Lab Results-Last 24 Hours 01/20/25 01/20/25 01/20/25 Range/Units 19:14 19:48 19:48 WBC 10.5 H (4.23-9.07) x10^3/uL RBC 3.87 L (4.63-6.08) x10^6/uL Hgb 12.4 L (13.7-17.5) g/dL Hct 38.2 L (40.1-51.0) % MCV 98.7 H (79.0-92.2) fL MCH 32.0 (25.7-32.2) pg MCHC 32.5 (32.3-36.5) g/dL RDW 13.2 (11.6-14.4) % Plt Count 201 (163-337) x10^3/uL MPV 9.8 (9.4-12.4) fL Gran % 78.5 H (34.0-67.9) % Immature Gran % (Auto) 0.3 (0.001-0.429) % Nucleat RBC Rel Count 0.0 (0.00-0.2) % Eos # (Auto) 0.01 L (0.04-0.54) x10^3/uL Immature Gran # (Auto) 0.03 (0.001-0.031) x10^3u/L Absolute Lymphs (auto) 1.46 (1.32-3.57) x10^3/uL Absolute Monos (auto) 0.72 (0.30-0.82) x10^3/uL Absolute Nucleated RBC 0.00 (0.00-0.012) x10^3u/L Lymphocytes % 13.9 L (21.8-53.1) % Monocytes % 6.9 (5.3-12.2) % Eosinophils % 0.1 L (0.8-7.0) % Basophils % 0.3 (0.2-1.2) % Absolute Granulocytes 8.26 H (1.78-5.38) x10^3/uL Basophils # 0.03 (0.01-0.08) x10^3/uL Puncture Site RIGHT RADIAL pCO2 72 H* (35-45) mmHg pO2 356 H* (75-100) mmHg Base Excess 3.9 H (-2.0-2.0) O2 Saturation 97.8 (94-100) g/dF ABG pH 7.27 L (7.35-7.45) ABG HCO3 33.1 H* (22-28) ABG O2 Sat (Measured) 99.8 (95-100) % Josh Test YES A-a Gradient 267 a/A Ratio 0.57 Hemoglobin 13.3 Carboxyhemoglobin 1.2 (0.0-6.9) % THgb Methemoglobin 0.8 L (1.4-1.5) % Potassium 4.5 4.5 (3.5-5.1) Temperature 37.0 C POC O2 Flow Rate 100 % Inspiratory BiPAP 16 Expiratory BiPAP 8 Sodium 135 (135-145) mmol/L Chloride 97 L (98-107) mmol/L Carbon Dioxide 30 (22-30) mmol/L Anion Gap 11.6 (5-15) MEQ/L BUN 15 (9-20) mg/dL Creatinine 0.60 L (0.66-1.25) mg/dL Estimated GFR 100.7 ML/MIN Glucose 127 H (74-106) mg/dL Lactic Acid 0.5 (0.4-2.0) Calcium 8.6 (8.4-10.2) mg/dL Magnesium 1.9 (1.6-2.3) mg/dL Total Bilirubin 0.30 (0.2-1.3) mg/dL AST 30 (17-59) U/L ALT 23 (0-50) U/L Alkaline Phosphatase 56 (38-126) U/L Troponin I (0.000-0.033) ng/mL NT-Pro-B Natriuret Pep (<300) pg/mL Serum Total Protein 6.3 (6.3-8.2) g/dL Albumin 4.0 (3.5-5.0) g/dL Influenza Type A Ag (NEGATIVE) Influenza Type B Ag (NEGATIVE) RSV (PCR) (NEGATIVE) SARS-CoV-2 (PCR) (NEGATIVE) Slides for Path Review 01/20/25 01/20/25 01/20/25 Range/Units 19:48 19:48 21:55 WBC (4.23-9.07) x10^3/uL RBC (4.63-6.08) x10^6/uL Hgb (13.7-17.5) g/dL Hct (40.1-51.0) % MCV (79.0-92.2) fL MCH (25.7-32.2) pg MCHC (32.3-36.5) g/dL RDW (11.6-14.4) % Plt Count (163-337) x10^3/uL MPV (9.4-12.4) fL Gran % (34.0-67.9) % Immature Gran % (Auto) (0.001-0.429) % Nucleat RBC Rel Count (0.00-0.2) % Eos # (Auto) (0.04-0.54) x10^3/uL Immature Gran # (Auto) (0.001-0.031) x10^3u/L Absolute Lymphs (auto) (1.32-3.57) x10^3/uL Absolute Monos (auto) (0.30-0.82) x10^3/uL Absolute Nucleated RBC (0.00-0.012) x10^3u/L Lymphocytes % (21.8-53.1) % Monocytes % (5.3-12.2) % Eosinophils % (0.8-7.0) % Basophils % (0.2-1.2) % Absolute Granulocytes (1.78-5.38) x10^3/uL Basophils # (0.01-0.08) x10^3/uL Puncture Site LEFT RADIAL pCO2 67 H* (35-45) mmHg pO2 187 H* (75-100) mmHg Base Excess 1.4 (-2.0-2.0) O2 Saturation 97.8 (94-100) g/dF ABG pH 7.26 L (7.35-7.45) ABG HCO3 30.1 H* (22-28) ABG O2 Sat (Measured) 98.8 (95-100) % Josh Test YES A-a Gradient 86 a/A Ratio 0.68 Hemoglobin 12.8 Carboxyhemoglobin 0.5 (0.0-6.9) % THgb Methemoglobin 0.6 L (1.4-1.5) % Potassium 4.2 (3.5-5.1) Temperature 37.0 C POC O2 Flow Rate 50 % Inspiratory BiPAP 16 Expiratory BiPAP 8 Sodium (135-145) mmol/L Chloride (98-107) mmol/L Carbon Dioxide (22-30) mmol/L Anion Gap (5-15) MEQ/L BUN (9-20) mg/dL Creatinine (0.66-1.25) mg/dL Estimated GFR ML/MIN Glucose (74-106) mg/dL Lactic Acid (0.4-2.0) Calcium (8.4-10.2) mg/dL Magnesium (1.6-2.3) mg/dL Total Bilirubin (0.2-1.3) mg/dL AST (17-59) U/L ALT (0-50) U/L Alkaline Phosphatase (38-126) U/L Troponin I < 0.012 (0.000-0.033) ng/mL NT-Pro-B Natriuret Pep 72.0 (<300) pg/mL Serum Total Protein (6.3-8.2) g/dL Albumin (3.5-5.0) g/dL Influenza Type A Ag POSITIVE A (NEGATIVE) Influenza Type B Ag NEGATIVE (NEGATIVE) RSV (PCR) NEGATIVE (NEGATIVE) SARS-CoV-2 (PCR) NEGATIVE (NEGATIVE) Slides for Path Review 01/21/25 01/21/25 01/21/25 Range/Units 03:48 03:52 03:52 WBC 7.0 (4.23-9.07) x10^3/uL RBC 3.58 L (4.63-6.08) x10^6/uL Hgb 11.5 L (13.7-17.5) g/dL Hct 35.5 L (40.1-51.0) % MCV 99.2 H (79.0-92.2) fL MCH 32.1 (25.7-32.2) pg MCHC 32.4 (32.3-36.5) g/dL RDW 13.2 (11.6-14.4) % Plt Count 212 (163-337) x10^3/uL MPV 10.3 (9.4-12.4) fL Gran % 92.1 H (34.0-67.9) % Immature Gran % (Auto) 0.3 (0.001-0.429) % Nucleat RBC Rel Count 0.0 (0.00-0.2) % Eos # (Auto) 0.01 L (0.04-0.54) x10^3/uL Immature Gran # (Auto) 0.02 (0.001-0.031) x10^3u/L Absolute Lymphs (auto) 0.45 L (1.32-3.57) x10^3/uL Absolute Monos (auto) 0.07 L (0.30-0.82) x10^3/uL Absolute Nucleated RBC 0.00 (0.00-0.012) x10^3u/L Lymphocytes % 6.4 L (21.8-53.1) % Monocytes % 1.0 L (5.3-12.2) % Eosinophils % 0.1 L (0.8-7.0) % Basophils % 0.1 L (0.2-1.2) % Absolute Granulocytes 6.45 H (1.78-5.38) x10^3/uL Basophils # 0.01 (0.01-0.08) x10^3/uL Puncture Site LEFT RADIAL pCO2 56 H (35-45) mmHg pO2 160 H* (75-100) mmHg Base Excess 4.0 H (-2.0-2.0) O2 Saturation 95.3 (94-100) g/dF ABG pH 7.35 (7.35-7.45) ABG HCO3 30.9 H* (22-28) ABG O2 Sat (Measured) 99.6 (95-100) % Josh Test YES A-a Gradient 55 a/A Ratio 0.74 Hemoglobin 12.2 Carboxyhemoglobin 3.4 (0.0-6.9) % THgb Methemoglobin 0.9 L (1.4-1.5) % Potassium 4.4 4.5 (3.5-5.1) Temperature 37.0 C POC O2 Flow Rate 40 % Inspiratory BiPAP Expiratory BiPAP Sodium 135 (135-145) mmol/L Chloride 99 (98-107) mmol/L Carbon Dioxide 32 H (22-30) mmol/L Anion Gap 9.6 (5-15) MEQ/L BUN 14 (9-20) mg/dL Creatinine 0.50 L (0.66-1.25) mg/dL Estimated GFR 106.4 ML/MIN Glucose 141 H (74-106) mg/dL Lactic Acid (0.4-2.0) Calcium 8.2 L (8.4-10.2) mg/dL Magnesium (1.6-2.3) mg/dL Total Bilirubin 0.20 (0.2-1.3) mg/dL AST 32 (17-59) U/L ALT 23 (0-50) U/L Alkaline Phosphatase 47 (38-126) U/L Troponin I (0.000-0.033) ng/mL NT-Pro-B Natriuret Pep (<300) pg/mL Serum Total Protein 6.0 L (6.3-8.2) g/dL Albumin 3.8 (3.5-5.0) g/dL Influenza Type A Ag (NEGATIVE) Influenza Type B Ag (NEGATIVE) RSV (PCR) (NEGATIVE) SARS-CoV-2 (PCR) (NEGATIVE) Slides for Path Review YES Radiology Exams: Radiology Procedures Category Date Time Status CHEST 1 VIEW (PORTABLE) Stat Exams 01/20/25 19:15 Taken Assessment/Plan (1) Acute respiratory failure with hypoxemia Current Visit: Yes Status: Acute Assessment & Plan: -Secondary to influenza with underlying COPD -CXR reviewed -Duonebs, supplemental oxygen -Steroids -Tamiflu/ceftriaxone/azith -CBC reviewed with WBC now WNL -ABG reviewed - patient on BIPAP initially now on 5L oxymask - RT following Code(s): J96.01 - ACUTE RESPIRATORY FAILURE WITH HYPOXIA (2) Influenza A Current Visit: Yes Status: Acute Assessment & Plan: -See ARF Code(s): J10.1 - FLU DUE TO OTH IDENT INFLUENZA VIRUS W OTH RESP MANIFEST (3) COPD exacerbation Current Visit: Yes Status: Acute Assessment & Plan: -See ARF Code(s): J44.1 - CHRONIC OBSTRUCTIVE PULMONARY DISEASE W (ACUTE) EXACERBATION (4) Essential (primary) hypertension Current Visit: Yes Status: Acute Assessment & Plan: -BP stable- continue home meds Code(s): I10 - ESSENTIAL (PRIMARY) HYPERTENSION (5) Respiratory acidosis Current Visit: Yes Status: Acute Assessment & Plan: ABG reviewed - with primary resp acidosis with secondary metabolic alkalosis - Monitor ABG -On Bipap initially - now on 5L oxymask- wean as appropriate Code(s): E87.29 - OTHER ACIDOSIS
[2025-01-21] MEDS: FLUTICASONE-SALMETEROL 250-50 IH SCH (07:10)
--- NOTE | 2025-01-21 08:57 | XRAY ---
Indication: Short of breath. Comparison: February 06, 2021 Portable chest again demonstrates COPD and a few calcified granulomas. New right middle lobe infiltrate/atelectasis with tiny effusion. Heart not enlarged again with right pacemaker. Bony thorax intact again with osteopenia and degenerative changes. Comment: Right lung findings not reported by interpreting ER clinician. Telephone report was given to Dr. Spear at 0850 hrs. on January 21, 2025.
[2025-01-21] MEDS ORDERED: NON-FORMULARY ITEM (Multivitamin [Multivitamin] 1 EACH Tablet) PO SCH (10:00)
[2025-01-21] MEDS ORDERED: NON-FORMULARY ITEM (Sacubitril/Valsartan [Entresto 24 Mg-26 Mg Tablet] 1 EACH Tablet) PO SCH (10:00)
[2025-01-21] MEDS ORDERED: NON-FORMULARY ITEM (Cyanocobalamin (Vitamin B-12) [Vitamin B12] 2,500 MCG Tab.Chew) PO SCH (10:00)
[2025-01-21] MEDS ORDERED: DULOXETINE HCL 20 MG PO SCH (10:00)
[2025-01-21] MEDS ORDERED: MEDICATION INTERVENTION MC SCH (10:00)
[2025-01-21] MEDS ORDERED: BABY ASPIRIN 81 MG CHEW PO SCH (10:00)
[2025-01-21] MEDS ORDERED: NON-FORMULARY ITEM (Budesonide/Formoterol Fumarate [Budesonide-Formoterol 160-4.5] 10.2 GM PO SCH (10:00)
[2025-01-21] MEDS: Flomax 0.4 MG PO SCH (10:56)
[2025-01-21] MEDS: Protonix 40MG Tablet PO SCH (10:56)
[2025-01-21] MEDS: Tamiflu 75MG Capsule PO SCH (10:56)
[2025-01-21] MEDS: ECOTRIN 81 MG PO SCH (10:56)
[2025-01-21] MEDS: Vitamin B-12 500 MCG PO SCH (10:56)
[2025-01-21] MEDS: solu-MEDROL 40 MG, Sterile H2O 10 ml 1 ML IV SCH (10:56)
[2025-01-21] MEDS: THERAGRAN MULTIVITAMIN PO SCH (10:56)
[2025-01-21] MEDS: ENOXAPARIN SODIUM SQ SCH (10:57)
[2025-01-21] MEDS: Toprol-Xl 25MG Tablets PO SCH (10:58)
[2025-01-21] MEDS: ENTRESTO 49 MG-51 MG TABLET PO SCH (10:58)
[2025-01-21] MEDS: TYLENOL 325 MG PO PRN (17:24)
[2025-01-21] MEDS: ROCEPHIN 1 GM / 100 ML NaCl 1 GM/100 ML IVPB IV SCH (21:40)
[2025-01-21] MEDS: Zocor 10MG PO SCH (21:40)
[2025-01-21] MEDS: Zithromax 500 MG/ 250 ML NaCl Premix 500 MG/250 ML IVPB IV SCH (21:43)
[2025-01-21] MEDS ORDERED: Sodium Chloride 0.9% 100 ML ONE (21:48)
--- NOTE | 2025-01-22 05:10 | PCM.NOTE ---
Date and Time: 01/22/25 050 Subjective Assessment: Mr. VASQUEZ is a 74 year old male with a past medical history significant for hypertension, CHF, bradycardia (pacemaker), COPD and hyperlipidemia who presents to the hospital with complaints of fever, chills and shortness of breath. He was hypoxic upon arrival, then given supplemental oxygen and duonebs. CXR demonstrates COPD and a few calcified granulomas. New right middle lobe infiltrate/atelectasis with tiny effusion. Heart not enlarged again with right pacemaker. Bony thorax intact again with osteopenia and degenerative changes. He tested positive for influenza A and has been recommended for admission. Patient initially on BIPAP and now on 5L oxymask. Endorses continued dyspnea, productive cough with purulent sputum, poor appetite, and generalized weakness. Lung sounds diminished on auscultation. Plan for continued supportive therapy with supplemental oxygen, Tamiflu, steroids, and antibiotics. 01/22/25: Dyspnea and cough improving. Patient now on 3L NC. Endorses continued weakness. Cough is non-productive - will add mucinex and flutter. Will continue current treatment with Tamiflu, steroids, ceftriaxone, and azithromycin. - Review of Systems Constitutional: Weakness Eyes: No Symptoms Ears, Nose, & Throat: No Symptoms Respiratory: Cough, Short Of Breath Cardiac: No Symptoms Abdominal/Gastrointestinal: No Symptoms Genitourinary Symptoms: No Symptoms Musculoskeletal: No Symptoms Skin: No Symptoms Neurological: No Symptoms Psychological: No Symptoms Endocrine: No Symptoms Hematologic/Lymphatic: No Symptoms Immunological/Allergic: No Symptoms Objective Exam General Appearance: no apparent distress Neurologic Exam: alert, oriented x 3, cooperative Skin Exam: normal color Eye Exam: PERRL Ears, Nose, Throat Exam: normal ENT inspection Neck Exam: normal inspection Respiratory Exam: diminished breath sounds Cardiovascular Exam: regular rate/rhythm, normal heart sounds Gastrointestinal/Abdomen Exam: soft, normal bowel sounds Extremity Exam: normal inspection Back Exam: normal inspection Male Genitalia Exam: deferred Rectal Exam: deferred Objective Data Vital Signs: Vital Signs - 24 hr Temp Pulse Resp BP Pulse Ox 01/22/25 04:03 97.3 F 73 19 91/60 96 01/22/25 03:37 87 18 97 01/21/25 23:56 87/52 01/21/25 23:52 73 18 95 01/21/25 20:00 97.6 F 83 19 85/53 96 01/21/25 19:08 83 18 94 L 01/21/25 17:20 100.4 F 01/21/25 16:00 99.0 F 86 16 91/50 92 L 01/21/25 15:16 93 H 18 95 01/21/25 11:47 98.6 F 99 H 23 120/58 96 01/21/25 11:41 94 H 18 97 01/21/25 07:43 98.1 F 87 19 97/61 95 01/21/25 07:00 94 H 19 95 Pain Assessment - Last Documented Pain Intensity 0 Intake and Output: Intake & Output 01/19/25 01/20/25 01/21/25 01/22/25 11:59 11:59 11:59 11:59 Intake Total 880 Output Total 600 850 Balance -600 30 Weight 60.9 kg Radiology Exams: Radiology Procedures Category Date Time Status CHEST 1 VIEW (PORTABLE) Stat Exams 01/20/25 19:15 Completed Assessment/Plan (1) Acute respiratory failure with hypoxemia Current Visit: Yes Status: Acute Assessment & Plan: -Secondary to influenza with underlying COPD -CXR reviewed -Duonebs, supplemental oxygen -Steroids -Tamiflu/ceftriaxone/azith -CBC reviewed with WBC now WNL -ABG reviewed - patient on BIPAP initially now on 5L oxymask - RT following 01/22: -Currently on 3L NC - dyspnea improving -continue steroids/abx/Tamiflu Code(s): J96.01 - ACUTE RESPIRATORY FAILURE WITH HYPOXIA (2) Influenza A Current Visit: Yes Status: Acute Assessment & Plan: -See ARF Code(s): J10.1 - FLU DUE TO OTH IDENT INFLUENZA VIRUS W OTH RESP MANIFEST CHF -Patient states he has EF around 40% - no records on file of echo -BNP at 71 on admission -BLE edema +1 -compression stalkings -Continue home entresto, metoprolol History of bradycardia - Pacemaker (3) COPD exacerbation Current Visit: Yes Status: Acute Assessment & Plan: -See ARF Code(s): J44.1 - CHRONIC OBSTRUCTIVE PULMONARY DISEASE W (ACUTE) EXACERBATION (4) Essential (primary) hypertension Current Visit: Yes Status: Acute Assessment & Plan: -BP stable- continue home meds Code(s): I10 - ESSENTIAL (PRIMARY) HYPERTENSION (5) Respiratory acidosis Current Visit: Yes Status: Acute Assessment & Plan: ABG reviewed - with primary resp acidosis with secondary metabolic alkalosis - Monitor ABG -On Bipap initially - now on 5L oxymask- wean as appropriate 01/22/25: -Improving - now on 3L NC Code(s): E87.29 - OTHER ACIDOSIS Code(s): J96.01 - ACUTE RESPIRATORY FAILURE WITH HYPOXIA (2) Influenza A Current Visit: Yes Status: Acute Code(s): J10.1 - FLU DUE TO OTH IDENT INFLUENZA VIRUS W OTH RESP MANIFEST (3) COPD exacerbation Current Visit: Yes Status: Acute Code(s): J44.1 - CHRONIC OBSTRUCTIVE PULMONARY DISEASE W (ACUTE) EXACERBATION (4) Essential (primary) hypertension Current Visit: Yes Status: Acute Code(s): I10 - ESSENTIAL (PRIMARY) HYPERTENSION (5) Respiratory acidosis Current Visit: Yes Status: Acute Code(s): E87.29 - OTHER ACIDOSIS (6) CHF (congestive heart failure) Current Visit: Yes Status: Acute Code(s): I50.9 - HEART FAILURE, UNSPECIFIED (7) History of bradycardia Current Visit: Yes Status: Acute Code(s): Z87.898 - PERSONAL HISTORY OF OTHER SPECIFIED CONDITIONS
[2025-01-22 06:01] LABS: Absolute Neutrophil Ct (ANC) 4.16 x10^3/uL (1.78-5.38); Basophil (Absolute #) 0 x10^3/uL (0.01-0.08); Eosinophil (Absolute #) 0 x10^3/uL (0.04-0.54); Hematocrit 36.4 % (40.1-51.0); Hemoglobin 11.9 g/dL (13.7-17.5); IMMATURE GRAN # 0.01 x10^3u/L (0.001-0.031); IMMATURE GRAN % 0.2 % (0.001-0.429); Lymphocyte (Absolute #) 0.71 x10^3/uL (1.32-3.57); Lymphocytes % 13.5 % (21.8-53.1); Mean Cell Volume 97.8 fL (79.0-92.2); Mean Corpuscular Hgb Concent. 32.7 g/dL (32.3-36.5); Mean Platelet Volume 9.2 fL (9.4-12.4); Monocyte (Absolute #) 0.38 x10^3/uL (0.30-0.82); Monocytes % 7.2 % (5.3-12.2); Neutrophil % 79.1 % (34.0-67.9); Platelet Count 203 x10^3/uL (163-337); Red Blood Count 3.72 x10^6/uL (4.63-6.08); Red Cell Distribution Width 13.3 % (11.6-14.4); White Blood Count 5.3 x10^3/uL (4.23-9.07)
[2025-01-22 06:22] LABS: ALBUMIN 3.8 g/dL (3.5-5.0); BILIRUBIN,TOTAL 0.2 mg/dL (0.2-1.3); Calcium 8.6 mg/dL (8.4-10.2); Creatinine 1 0.59 mg/dL (0.66-1.25); EST GLOMERULAR FILTRATION RATE 101.2 ML/MIN; Potassium 4.4 mmol/L (3.5-5.1); Total Protein 6.1 g/dL (6.3-8.2)
[2025-01-22] MEDS: NON-FORMULARY ITEM (Budesonide/Formoterol Fumarate [Budesonide-Formoterol 160-4.5] 10.2 GM PO SCH (07:07)
[2025-01-22] MEDS: Mucinex 600MG ER Tabs PO SCH (09:49)
[2025-01-23 05:43] LABS: Absolute Neutrophil Ct (ANC) 4.73 x10^3/uL (1.78-5.38); Basophil (Absolute #) 0 x10^3/uL (0.01-0.08); Eosinophil (Absolute #) 0 x10^3/uL (0.04-0.54); Hematocrit 35.1 % (40.1-51.0); Hemoglobin 11.4 g/dL (13.7-17.5); IMMATURE GRAN # 0.02 x10^3u/L (0.001-0.031); IMMATURE GRAN % 0.3 % (0.001-0.429); Lymphocyte (Absolute #) 0.78 x10^3/uL (1.32-3.57); Mean Cell Volume 97.8 fL (79.0-92.2); Mean Corpuscular Hemoglobin 31.8 pg (25.7-32.2); Mean Corpuscular Hgb Concent. 32.5 g/dL (32.3-36.5); Mean Platelet Volume 9.6 fL (9.4-12.4); Monocyte (Absolute #) 0.48 x10^3/uL (0.30-0.82); NUCLEATED RBC # 0.02 x10^3u/L (0.00-0.012); NUCLEATED RBC % 0.3 % (0.00-0.2); Neutrophil % 78.7 % (34.0-67.9); Platelet Count 204 x10^3/uL (163-337); Red Blood Count 3.59 x10^6/uL (4.63-6.08); Red Cell Distribution Width 13.3 % (11.6-14.4)
[2025-01-23 06:03] LABS: ALBUMIN 3.7 g/dL (3.5-5.0); ANION GAP 10.7 MEQ/L (5-15); BILIRUBIN,TOTAL 0.3 mg/dL (0.2-1.3); Calcium 8.6 mg/dL (8.4-10.2); Creatinine 1 0.57 mg/dL (0.66-1.25); EST GLOMERULAR FILTRATION RATE 102.2 ML/MIN; Potassium 4.4 mmol/L (3.5-5.1)
--- NOTE | 2025-01-23 06:17 | PCM.NOTE ---
Date and Time: 01/23/25 0616 Subjective Assessment: Mr. VASQUEZ is a 74 year old male with a past medical history significant for hypertension, CHF, bradycardia (pacemaker), COPD and hyperlipidemia who presents to the hospital with complaints of fever, chills and shortness of breath. He was hypoxic upon arrival, then given supplemental oxygen and duonebs. CXR demonstrates COPD and a few calcified granulomas. New right middle lobe infiltrate/atelectasis with tiny effusion. Heart not enlarged again with right pacemaker. Bony thorax intact again with osteopenia and degenerative changes. He tested positive for influenza A and has been recommended for admission. Patient initially on BIPAP and now on 5L oxymask. Endorses continued dyspnea, productive cough with purulent sputum, poor appetite, and generalized weakness. Lung sounds diminished on auscultation. Plan for continued supportive therapy with supplemental oxygen, Tamiflu, steroids, and antibiotics. 01/22/25: Dyspnea and cough improving. Patient now on 3L NC. Endorses continued weakness. Cough is non-productive - will add mucinex and flutter. Will continue current treatment with Tamiflu, steroids, ceftriaxone, and azithromycin. 01/23/25: No overnight events noted. Lung auscultation with increased aeration/exp wheezing. Continues on 3L NC - baseline 2L. Cough is non-productive. Endorses continued dyspnea and weakness. Continue Tamiflu, steroids, and abx. - Review of Systems Constitutional: Weakness Eyes: No Symptoms Ears, Nose, & Throat: No Symptoms Respiratory: Cough, Short Of Breath, Wheezing Cardiac: Edema (ble edema 1+) Abdominal/Gastrointestinal: No Symptoms Genitourinary Symptoms: No Symptoms Musculoskeletal: No Symptoms Skin: No Symptoms Neurological: No Symptoms Psychological: No Symptoms Endocrine: No Symptoms Hematologic/Lymphatic: No Symptoms Immunological/Allergic: No Symptoms Objective Exam General Appearance: no apparent distress Neurologic Exam: alert, oriented x 3, cooperative Skin Exam: normal color Eye Exam: PERRL Ears, Nose, Throat Exam: normal ENT inspection Neck Exam: normal inspection Respiratory Exam: diminished breath sounds, wheezing Cardiovascular Exam: regular rate/rhythm, normal heart sounds Gastrointestinal/Abdomen Exam: soft, normal bowel sounds Extremity Exam: swelling (BLE +1) Back Exam: normal inspection Male Genitalia Exam: deferred Rectal Exam: deferred Objective Data Vital Signs: Vital Signs - 24 hr Temp Pulse Resp BP Pulse Ox 01/23/25 04:00 97.6 F 68 18 91/62 95 01/22/25 23:47 97.7 F 78 18 113/63 98 01/22/25 22:11 83 16 94 L 01/22/25 19:47 97.1 F 83 19 105/55 96 01/22/25 19:14 87 18 95 01/22/25 16:50 97.7 F 106 H 20 99/56 92 L 01/22/25 12:39 96.8 F 75 19 104/56 94 L 01/22/25 11:49 85 20 96 01/22/25 07:53 97.7 F 74 19 91/54 97 01/22/25 07:09 70 22 97 Pain Assessment - Last Documented Pain Intensity 0 Intake and Output: Intake & Output 01/20/25 01/21/25 01/22/25 01/23/25 11:59 11:59 11:59 12:59 Intake Total 1120 1060 Output Total 600 1250 840 Balance -600 -130 220 Weight 60.9 kg Lab Results: Lab Results-Last 24 Hours 01/22/25 01/22/25 01/23/25 Range/Units 05:58 05:58 05:30 WBC 5.3 6.0 (4.23-9.07) x10^3/uL RBC 3.72 L 3.59 L (4.63-6.08) x10^6/uL Hgb 11.9 L 11.4 L (13.7-17.5) g/dL Hct 36.4 L 35.1 L (40.1-51.0) % MCV 97.8 H 97.8 H (79.0-92.2) fL MCH 32.0 31.8 (25.7-32.2) pg MCHC 32.7 32.5 (32.3-36.5) g/dL RDW 13.3 13.3 (11.6-14.4) % Plt Count 203 204 (163-337) x10^3/uL MPV 9.2 L 9.6 (9.4-12.4) fL Gran % 79.1 H 78.7 H (34.0-67.9) % Immature Gran % (Auto) 0.2 0.3 (0.001-0.429) % Nucleat RBC Rel Count 0.0 0.3 H (0.00-0.2) % Eos # (Auto) 0 L 0 L (0.04-0.54) x10^3/uL Immature Gran # (Auto) 0.01 0.02 (0.001-0.031) x10^3u/L Absolute Lymphs (auto) 0.71 L 0.78 L (1.32-3.57) x10^3/uL Absolute Monos (auto) 0.38 0.48 (0.30-0.82) x10^3/uL Absolute Nucleated RBC 0.00 0.02 H (0.00-0.012) x10^3u/L Lymphocytes % 13.5 L 13.0 L (21.8-53.1) % Monocytes % 7.2 8.0 (5.3-12.2) % Eosinophils % 0.0 L 0.0 L (0.8-7.0) % Basophils % 0.0 L 0.0 L (0.2-1.2) % Absolute Granulocytes 4.16 4.73 (1.78-5.38) x10^3/uL Basophils # 0 L 0 L (0.01-0.08) x10^3/uL Sodium 137 (135-145) mmol/L Potassium 4.4 (3.5-5.1) mmol/L Chloride 96 L (98-107) mmol/L Carbon Dioxide 36 H (22-30) mmol/L Anion Gap 10.0 (5-15) MEQ/L BUN 18 (9-20) mg/dL Creatinine 0.59 L (0.66-1.25) mg/dL Estimated GFR 101.2 ML/MIN Glucose 128 H (74-106) mg/dL Calcium 8.6 (8.4-10.2) mg/dL Total Bilirubin 0.20 (0.2-1.3) mg/dL AST 39 (17-59) U/L ALT 26 (0-50) U/L Alkaline Phosphatase 45 (38-126) U/L Serum Total Protein 6.1 L (6.3-8.2) g/dL Albumin 3.8 (3.5-5.0) g/dL 01/23/25 Range/Units 05:30 WBC (4.23-9.07) x10^3/uL RBC (4.63-6.08) x10^6/uL Hgb (13.7-17.5) g/dL Hct (40.1-51.0) % MCV (79.0-92.2) fL MCH (25.7-32.2) pg MCHC (32.3-36.5) g/dL RDW (11.6-14.4) % Plt Count (163-337) x10^3/uL MPV (9.4-12.4) fL Gran % (34.0-67.9) % Immature Gran % (Auto) (0.001-0.429) % Nucleat RBC Rel Count (0.00-0.2) % Eos # (Auto) (0.04-0.54) x10^3/uL Immature Gran # (Auto) (0.001-0.031) x10^3u/L Absolute Lymphs (auto) (1.32-3.57) x10^3/uL Absolute Monos (auto) (0.30-0.82) x10^3/uL Absolute Nucleated RBC (0.00-0.012) x10^3u/L Lymphocytes % (21.8-53.1) % Monocytes % (5.3-12.2) % Eosinophils % (0.8-7.0) % Basophils % (0.2-1.2) % Absolute Granulocytes (1.78-5.38) x10^3/uL Basophils # (0.01-0.08) x10^3/uL Sodium 139 (135-145) mmol/L Potassium 4.4 (3.5-5.1) mmol/L Chloride 98 (98-107) mmol/L Carbon Dioxide 35 H (22-30) mmol/L Anion Gap 10.7 (5-15) MEQ/L BUN 22 H (9-20) mg/dL Creatinine 0.57 L (0.66-1.25) mg/dL Estimated GFR 102.2 ML/MIN Glucose 123 H (74-106) mg/dL Calcium 8.6 (8.4-10.2) mg/dL Total Bilirubin 0.30 (0.2-1.3) mg/dL AST 39 (17-59) U/L ALT 28 (0-50) U/L Alkaline Phosphatase 43 (38-126) U/L Serum Total Protein 6.0 L (6.3-8.2) g/dL Albumin 3.7 (3.5-5.0) g/dL Assessment/Plan (1) Acute respiratory failure with hypoxemia Current Visit: Yes Status: Acute Assessment & Plan: -Secondary to influenza with underlying COPD -CXR reviewed -Duonebs, supplemental oxygen -Steroids -Tamiflu/ceftriaxone/azith -CBC reviewed with WBC now WNL -ABG reviewed - patient on BIPAP initially now on 5L oxymask - RT following 01/22: -Currently on 3L NC - dyspnea improving -continue steroids/abx/Tamiflu 01/23: -3L NC -CMP/CBC reviewed -continue abx/steroid/Tamiflu Code(s): J96.01 - ACUTE RESPIRATORY FAILURE WITH HYPOXIA (2) Influenza A Current Visit: Yes Status: Acute Assessment & Plan: -See ARF Code(s): J10.1 - FLU DUE TO OTH IDENT INFLUENZA VIRUS W OTH RESP MANIFEST CHF -Patient states he has EF around 40% - no records on file of echo -BNP at 71 on admission -BLE edema +1 -compression stalkings -Continue home entresto, metoprolol History of bradycardia - Pacemaker (3) COPD exacerbation Current Visit: Yes Status: Acute Assessment & Plan: -See ARF Code(s): J44.1 - CHRONIC OBSTRUCTIVE PULMONARY DISEASE W (ACUTE) EXACERBATION (4) Essential (primary) hypertension Current Visit: Yes Status: Acute Assessment & Plan: -BP stable- continue home meds Code(s): I10 - ESSENTIAL (PRIMARY) HYPERTENSION (5) Respiratory acidosis Current Visit: Yes Status: Acute Assessment & Plan: ABG reviewed - with primary resp acidosis with secondary metabolic alkalosis - Monitor ABG -On Bipap initially - now on 5L oxymask- wean as appropriate 01/22/25: -Improving - now on 3L NC VTE: Lovenox PPI: Protonix Dispo: 2-3 days Code(s): J96.01 - ACUTE RESPIRATORY FAILURE WITH HYPOXIA (2) Influenza A Current Visit: Yes Status: Acute Code(s): J10.1 - FLU DUE TO OTH IDENT INFLUENZA VIRUS W OTH RESP MANIFEST (3) COPD exacerbation Current Visit: Yes Status: Acute Code(s): J44.1 - CHRONIC OBSTRUCTIVE PULMONARY DISEASE W (ACUTE) EXACERBATION (4) Essential (primary) hypertension Current Visit: Yes Status: Acute Code(s): I10 - ESSENTIAL (PRIMARY) HYPERTENSION (5) Respiratory acidosis Current Visit: Yes Status: Acute Code(s): E87.29 - OTHER ACIDOSIS (6) CHF (congestive heart failure) Current Visit: Yes Status: Acute Code(s): I50.9 - HEART FAILURE, UNSPECIFIED (7) History of bradycardia Current Visit: Yes Status: Acute Code(s): Z87.898 - PERSONAL HISTORY OF OTHER SPECIFIED CONDITIONS
[2025-01-24 05:25] LABS: Absolute Neutrophil Ct (ANC) 3.92 x10^3/uL (1.78-5.38); BASOPHIL % 0.2 % (0.2-1.2); Basophil (Absolute #) 0.01 x10^3/uL (0.01-0.08); Eosinophil (Absolute #) 0 x10^3/uL (0.04-0.54); Hematocrit 37.7 % (40.1-51.0); Hemoglobin 12.1 g/dL (13.7-17.5); IMMATURE GRAN # 0.02 x10^3u/L (0.001-0.031); IMMATURE GRAN % 0.4 % (0.001-0.429); Lymphocyte (Absolute #) 0.85 x10^3/uL (1.32-3.57); Lymphocytes % 16.4 % (21.8-53.1); Mean Corpuscular Hemoglobin 31.8 pg (25.7-32.2); Mean Corpuscular Hgb Concent. 32.1 g/dL (32.3-36.5); Mean Platelet Volume 9.8 fL (9.4-12.4); Monocyte (Absolute #) 0.38 x10^3/uL (0.30-0.82); Monocytes % 7.3 % (5.3-12.2); NUCLEATED RBC # 0.02 x10^3u/L (0.00-0.012); NUCLEATED RBC % 0.4 % (0.00-0.2); Neutrophil % 75.7 % (34.0-67.9); Platelet Count 226 x10^3/uL (163-337); Red Blood Count 3.81 x10^6/uL (4.63-6.08); Red Cell Distribution Width 13.5 % (11.6-14.4); White Blood Count 5.2 x10^3/uL (4.23-9.07)
[2025-01-24 05:53] LABS: ALBUMIN 3.8 g/dL (3.5-5.0); ANION GAP 8.7 MEQ/L (5-15); BILIRUBIN,TOTAL 0.3 mg/dL (0.2-1.3); Calcium 8.8 mg/dL (8.4-10.2); Creatinine 1 0.63 mg/dL (0.66-1.25); EST GLOMERULAR FILTRATION RATE 99.2 ML/MIN; Potassium 4.5 mmol/L (3.5-5.1); Total Protein 6.3 g/dL (6.3-8.2)
[2025-01-24 11:30] VITALS: BP 97/61; PULSE 70; RESP 20; TEMP 97.9; O2SAT 94
--- NOTE | 2025-01-24 12:22 | PCM.DS ---
Discharge Summary Date of Admission: 01/20/25 23:13 Date of Discharge: 01/24/25 Admitting Physician: DAMON BOSE MD Primary Care Provider: MELANIE CHUNG Allergies Allergies No Known Drug Allergies Allergy (Verified 01/20/25 19:05) Hospital Summary - Hospital Course Hospital Course: Mr. Everett is a 74-year-old male with a medical history of hypertension, CHF, bradycardia (pacemaker), COPD, and hyperlipidemia, who presented to the hospital with fever, chills, and shortness of breath on 01/23/25. Upon arrival, he was hypoxic and received supplemental oxygen and duonebs. His chest X-ray revealed COPD, a few calcified granulomas, a new right middle lobe infiltrate/atelectasis with a tiny effusion, and a right pacemaker. He tested positive for influenza A and was admitted for treatment. Initially on BiPAP, he was later transitioned to a 5L oxymask. He continued to experience dyspnea, a productive cough with purulent sputum, poor appetite, and generalized weakness. Lung sounds were diminished, and the plan was to continue supportive therapy with supplemental oxygen, Tamiflu, steroids, and antibiotics. By 01/22/25, his dyspnea and cough showed improvement, and he was on 3L of nasal cannula (NC). He reported continued weakness, with a non-productive cough, and mucinex and flutter therapy were added. His treatment plan continued with Tamif eduardo, steroids, ceftriaxone, and azithromycin. On 01/23/25, there were no significant overnight events. Lung auscultation revealed increased aeration and expiratory wheezing. He remained on 3L NC, with a baseline of 2L, and continued to endorse dyspnea and weakness. The treatment regimen remained the same. By 01/24, Mr. Everett required oxygen with CPAP overnight, though he uses CPAP at home without supplemental oxygen. An outpatient overnight pulse oximetry was ordered, and he was evaluated for home needs and ongoing weakness. His oxygen saturation was stable at 94% on his baseline 2L NC. He denied any further concerns, except for weakness. Case management to set up home health care. Pt also needs 4lNC with activity. Case management to set up home O2. - Vitals & Intake/Output Vital Signs: Vital Signs Temperature 97.9 F 01/24/25 11:29 Pulse Rate 70 01/24/25 11:29 Respiratory Rate 20 01/24/25 11:29 Blood Pressure 97/61 01/24/25 11:29 O2 Sat by Pulse Oximetry 94 L 01/24/25 11:29 Intake & Output: Intake & Output 01/22/25 01/23/25 01/24/25 01/25/25 10:59 11:59 11:59 11:59 Intake Total 1160 Output Total 1100 Balance 60 - Lab Result Diagrams: 01/24/25 05:19 01/24/25 05:19 Lab Results-Last 24 Hrs: Lab Results-Last 24 Hours 01/24/25 01/24/25 Range/Units 05:19 05:19 WBC 5.2 (4.23-9.07) x10^3/uL RBC 3.81 L (4.63-6.08) x10^6/uL Hgb 12.1 L (13.7-17.5) g/dL Hct 37.7 L (40.1-51.0) % MCV 99.0 H (79.0-92.2) fL MCH 31.8 (25.7-32.2) pg MCHC 32.1 L (32.3-36.5) g/dL RDW 13.5 (11.6-14.4) % Plt Count 226 (163-337) x10^3/uL MPV 9.8 (9.4-12.4) fL Gran % 75.7 H (34.0-67.9) % Immature Gran % (Auto) 0.4 (0.001-0.429) % Nucleat RBC Rel Count 0.4 H (0.00-0.2) % Eos # (Auto) 0 L (0.04-0.54) x10^3/uL Immature Gran # (Auto) 0.02 (0.001-0.031) x10^3u/L Absolute Lymphs (auto) 0.85 L (1.32-3.57) x10^3/uL Absolute Monos (auto) 0.38 (0.30-0.82) x10^3/uL Absolute Nucleated RBC 0.02 H (0.00-0.012) x10^3u/L Lymphocytes % 16.4 L (21.8-53.1) % Monocytes % 7.3 (5.3-12.2) % Eosinophils % 0.0 L (0.8-7.0) % Basophils % 0.2 (0.2-1.2) % Absolute Granulocytes 3.92 (1.78-5.38) x10^3/uL Basophils # 0.01 (0.01-0.08) x10^3/uL Sodium 138 (135-145) mmol/L Potassium 4.5 (3.5-5.1) mmol/L Chloride 95 L (98-107) mmol/L Carbon Dioxide 39 H (22-30) mmol/L Anion Gap 8.7 (5-15) MEQ/L BUN 18 (9-20) mg/dL Creatinine 0.63 L (0.66-1.25) mg/dL Estimated GFR 99.2 ML/MIN Glucose 128 H (74-106) mg/dL Calcium 8.8 (8.4-10.2) mg/dL Total Bilirubin 0.30 (0.2-1.3) mg/dL AST 57 (17-59) U/L ALT 50 (0-50) U/L Alkaline Phosphatase 44 (38-126) U/L Serum Total Protein 6.3 (6.3-8.2) g/dL Albumin 3.8 (3.5-5.0) g/dL Micro Results-Entire Visit: Microbiology 01/20/25 19:48 Blood Culture Gram Stain - Final Blood Blood Culture - Preliminary NO GROWTH TO DATE 01/20/25 19:48 Blood Culture - Preliminary Blood - Procedures and Test Procedures and Tests throughout Hospitalization: Therapy Orders & Screens 01/20/25 19:14 BiPap/CPAP ROUTINE Comment: 01/20/25 19:37 Respiratory Therapy Assessment DAILY Comment: 01/20/25 23:49 Oxygen Nasal Cannula 6 lpm Comment: Diagnosis: Influenza 01/21/25 04:47 Respiratory Therapy Consult ONCE Comment: Reason For Exam: 01/21/25 07:00 Respiratory MDI Q12H Comment: Diagnosis: Respiratory failure, COPD exacerbation, Influenza 01/21/25 08:00 RT Screen per Nursing Assess ONCE Comment: Protocol Order Physician Instructions: Greater than 3 points order RT Admission Screen Reason For Exam: Triggered on Admission Diagnosis: Influenza Diagnosis: Influenza Home O2: Yes CHF: Yes Home Nebs/MDI: Yes Total Points: 13 01/22/25 09:01 FLUTTER [Flutter Therapy] UD Comment: Diagnosis: Respiratory failure, COPD exacerbation, Influenza 01/24/25 11:13 PT Eval & Treat (MD Order) ONCE Reason for Eval:: weakness Diagnosis: Respiratory failure, COPD exacerbation, Influenza Discharge Exam General Appearance: no apparent distress, alert Neurologic Exam: alert, oriented x 3, cooperative, normal mood/affect, nml cerebellar function, sensation nml, motor weakness, No motor deficits Eye Exam: PERRL, EOMI, eyes nml inspection Ears, Nose, Throat Exam: normal ENT inspection, pharynx normal, moist mucous membranes Neck Exam: normal inspection, non-tender, supple, full range of motion Respiratory Exam: normal breath sounds, lungs clear, No respiratory distress Cardiovascular Exam: regular rate/rhythm, normal heart sounds Gastrointestinal/Abdomen Exam: soft, No tenderness, No mass Male Genitalia Exam: deferred Rectal Exam: deferred Back Exam: normal inspection, normal range of motion, No CVA tenderness, No vertebral tenderness Extremity Exam: normal inspection, normal range of motion Skin Exam: normal color, warm, dry Final Diagnosis/Problem List - Final Discharge Diagnosis/Problem (1) Acute respiratory failure with hypoxemia Current Visit: Yes Status: Acute Assessment & Plan: - On baseline O2 of 2lNC 94% -Secondary to influenza with underlying COPD -CXR reviewed -Duonebs, supplemental oxygen -Steroids -Tamiflu/ceftriaxone/azith -CBC reviewed Code(s): J96.01 - ACUTE RESPIRATORY FAILURE WITH HYPOXIA (2) COPD exacerbation Current Visit: Yes Status: Acute Assessment & Plan: - see above plan Code(s): J44.1 - CHRONIC OBSTRUCTIVE PULMONARY DISEASE W (ACUTE) EXACERBATION (3) Essential (primary) hypertension Current Visit: Yes Status: Acute Assessment & Plan: -BP stable- continue home meds Code(s): I10 - ESSENTIAL (PRIMARY) HYPERTENSION (4) History of bradycardia Current Visit: Yes Status: Acute Assessment & Plan: - Pacemaker Code(s): Z87.898 - PERSONAL HISTORY OF OTHER SPECIFIED CONDITIONS (5) Influenza A Current Visit: Yes Status: Acute Assessment & Plan: - tamiflu - + test in ER Code(s): J10.1 - FLU DUE TO OTH IDENT INFLUENZA VIRUS W OTH RESP MANIFEST (6) Respiratory acidosis Current Visit: Yes Status: Resolved Assessment & Plan: - as seen on ABG - Co2 39 - On baseline O2 2lNC 94% Code(s): E87.29 - OTHER ACIDOSIS (7) CHF (congestive heart failure) Current Visit: Yes Status: Chronic Assessment & Plan: -Patient states he has EF around 40% - no records on file of echo -BNP at 71 on admission -BLE edema - improved -compression stalkings -Continue home entresto, metoprolol Code(s): I50.9 - HEART FAILURE, UNSPECIFIED - Discharge Discharge Date: 01/24/25 Disposition: Home, Self-Care Condition: Fair Prescriptions: Continue Ipratropium/Albuterol Sulfate [Combivent Respimat Inhal Silt] 1 puff PO QID Simvastatin 10 mg [Zocor 10MG] 10 mg PO HS Budesonide/Formoterol Fumarate [Budesonide-Formoterol 160-4.5] 2 puffs PO BID Sacubitril/Valsartan [Entresto 24 mg-26 mg Tablet] 1 tab PO DAILY Duloxetine HCl [Cymbalta] 20 mg PO DAILY Tamsulosin HCl 0.4 mg [Flomax 0.4 MG] 0.4 mg PO DAILY Metoprolol Succinate 25 mg Xl* [Toprol-Xl 25MG Tablets] 25 mg PO DAILY Multivitamin 1 tab PO DAILY Cyanocobalamin (Vitamin B-12) [Vitamin B12] 1,000 mcg PO DAILY Aspirin 81 gm Chew [Baby Aspirin 81 mg Chew] 81 mg PO DAILY Prednisone 10 mg [Deltasone 10 mg] 10 mg PO DAILY Outpatient Orders: Overnight Pulse Ox Time Frame: 1 Day, Facility: [facility], Location: RESPIRATORY THERAPY Follow up with: MELANIE CHUNG MD [Primary Care Provider] - 01/31/25 10:45 am (AT [facility] )
== END 2025-01-24 16:03 | disposition home or self-care (01) | DRG 189 ==
LOC: ED 19:03 → OBSVTOIN 23:13 → MED SURG 23:13
PROVIDERS: ADMIT Internal Medicine Nephrology; ATTEND Internal Medicine Nephrology
DX: J96.01 Acute respiratory failure with hypoxia (principal); J44.1 Chronic obstructive pulmonary disease with (acute) exacerbation; E87.29 Other acidosis; Z87.898 Personal history of other specified conditions; J10.1 Influenza due to other identified influenza virus with other respiratory manifestations; I11.0 Hypertensive heart disease with heart failure; I50.9 Heart failure, unspecified; J44.9 Chronic obstructive pulmonary disease, unspecified; E78.5 Hyperlipidemia, unspecified; F17.200 Nicotine dependence, unspecified, uncomplicated; Z79.899 Other long term (current) drug therapy
CPT/HCPCS: 0241U; 36415; 36600; 71045; 80053; 82375; 82803; 83605; 83735; 83880; 84484; 85025; 87040; 93005; 93041; 94002; 94003; 94640; 94660; 94667; 94668; 94760; 94762; 99285; 99291; J0456; J0696; J1650; J2919; A9270-GY